=== PATIENT | male | born 1970 | race Caucasian/White ===

== ENCOUNTER 2023-09-27 07:25 | Outpatient (OUT) | payer OTHER, SELFPAY ==
[2023-09-27 08:20] LABS: Basophils Absolute Auto 0.1 10^3/uL (0.0-0.1); Basophils Percent Auto 1.1 % (0.2-2.0); Eosinophils Absolute Auto 0.3 10^3/uL (0.0-0.7); Hematocrit 42.3 % (42.0-54.0); Hemoglobin 14.8 g/dL (14.0-18.0); Immature Granulocytes Abs Auto 0.01 10^3/uL (0.00-0.03); Immature Granulocytes Pct Auto 0.2 % (0.0-0.5); Lymphocytes Absolute Auto 1.7 10^3/uL (1.2-3.8); Lymphocytes Percent Auto 26.9 % (20.5-60.0); Mean Corpuscular Hemoglobin 32.2 pg (25.9-34.0); Mean Corpuscular Volume 92.2 fL (80.0-94.0); Mean Platelet Volume 9.1 fL (9.5-13.5); Monocytes Absolute Auto 0.6 10^3/uL (0.3-0.8); Monocytes Percent Auto 9.7 % (1.7-12.0); Neutrophils Absolute Auto 3.7 10^3/uL (1.4-6.5); Neutrophils Percent Auto 58.1 % (43.0-75.0); Platelet Count 311 10^3/uL (150-450); Red Blood Count 4.59 10^6/uL (4.70-6.10); Red Cell Distribution Width 11.8 % (11.0-15.0); White Blood Count 6.3 10^3/uL (4.0-11.0)
[2023-09-27 08:32] LABS: Alanine Aminotransferase 45 U/L (16-63); Albumin Globulin Ratio 0.8; Albumin Level 3.6 g/dL (3.4-5.0); Alkaline Phosphatase 33 U/L (46-116); Anion Gap 11.6; Aspartate Amino Transferase 24 U/L (15-37); BUN Creatinine Ratio 9.2; Bilirubin Total 0.8 mg/dL (0.2-1.0); Calcium 9.5 mg/dL (8.5-10.1); Carbon Dioxide 27.9 mmol/L (21.0-32.0); Chloride 98 mmol/L (98-107); Chol HDL Ratio 2.7; Cholesterol 168 mg/dL (<=200); Estimated GFR (African America >60 (>=60); Estimated GFR (Non-African Ame >60 (>=60); Globulin 4.3 g/dL; Glucose 115 mg/dL (74-106); HDL Cholesterol 63 mg/dL (40-60); Potassium 3.5 mmol/L (3.5-5.1); Sodium 134 mmol/L (136-145); Total Protein 7.9 g/dL (6.4-8.2); Triglycerides 84 mg/dL (<=150); VLDL CHOLESTEROL 16.8 mg/dL
[2023-09-27 10:13] LABS: Bilirubin Urine NEGATIVE (NEGATIVE); Blood Urine TRACE-I (NEGATIVE); Clarity Urine CLEAR (CLEAR); Color Urine YELLOW (YELLOW); Glucose Urine UA NEGATIVE (NEGATIVE); Ketones Urine NEGATIVE (NEGATIVE); Leukocyte Esterase Urine NEGATIVE (NEGATIVE); Nitrite Urine NEGATIVE (NEGATIVE); Protein Urine NEGATIVE (NEG/TRACE); Specific Gravity Urine 1.015 (1.005-1.025); Urobilinogen Urine 0.2 EU/dL (0.2-1.0); pH Urine 6.5 (5.0-9.0)
[2023-09-27 10:23] LABS: Urine Microscopic Indicated YES
[2023-09-27 10:24] LABS: WBC Urine NONE SEEN #/HPF (NONE SEEN)
[2023-09-27 10:25] LABS: Bacteria Urine NONE SEEN #/HPF (NONE SEEN); Mucus Urine NONE SEEN (NONE SEEN); RBC Urine 0-2 #/HPF (0-2); Squamous Epithelial Cell Urine RARE #/LPF (NONE/RARE)
[2023-09-27 11:22] LABS: Prostate Specific Antigen Scrn 0.76 ng/mL (<=4.00)
== END 2023-09-27 07:26 | disposition home or self-care (01) ==
DX: G47.30 Sleep apnea, unspecified (principal); Z13.0 Encounter for screening for diseases of the blood and blood-forming organs and certain disorders involving the immune mechanism; Z12.5 Encounter for screening for malignant neoplasm of prostate; I10 Essential (primary) hypertension; Z13.1 Encounter for screening for diabetes mellitus; Z13.220 Encounter for screening for lipoid disorders
CPT/HCPCS: 36415; 80053; 80061; 81001; 85025; G0103

== ENCOUNTER 2025-08-29 16:27 | Emergency (ER) | payer OTHER, SELFPAY ==
[2025-08-29] VITALS (34 sets, daily range): BP systolic 130–200; BP diastolic 80–102; PULSE 106–128; TEMP 36.6; O2SAT 96–100; BMI 35.3
--- NOTE | 2025-08-29 16:32 | XR_ITS ---
The [address] [address] Patient Name: SERENITY JUNG MRN: [id number] date: 1970 Sex: M Assigned Patient Location: ED.MAIN Current Patient Location: ED.MAIN Accession/Order Number: [id number] Exam Date: 08/29/2025 16:50 Report Date: 08/29/2025 17:45 At the request of: ROSA SCHAFER MD Procedure: XR chest 1V PA CHEST: CLINICAL HISTORY: cp COMPARISON: None Unremarkable cardiomediastinal. Lungs clear. No effusion or pneumothorax. XR/XR chest 1V IMPRESSION: NEGATIVE ACUTE PLEURAL-PARENCHYMAL DISEASE. Impression dictated by: Ok Castillo M.D. 08/29/2025 5:45 PM Dictation Location: [place] [address] Electronically authenticated by: [id number] Y Date: 08/29/2025 17:45
--- NOTE | 2025-08-29 16:32 | ECG_ITS ---
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 Measurements Intervals [place] Rate: 112 P: 56 NM: 194 QRS: -19 QRSD: 96 T: 67 QT: 308 QTc: 375 Interpretive Statements 1120 Sinus tachycardia 4068 Nonspecific [place] abnormality 8003 Consistent with pulmonary disease 8102 Low QRS voltage in chest leads 9150 abnormal ECG Compared to ECG 08/29/2025 16:35:01 No significant changes Electronically Signed On 08-30-2025 19:58:37 EST by JOSE WHITNEY M.D.
[2025-08-29 16:46] LABS: Hematocrit 40.8 % (42.0-54.0); Hemoglobin 15.3 g/dL (14.0-18.0); Immature Granulocytes Abs Auto 0.03 10^3/uL (0.00-0.03); Immature Granulocytes Pct Auto 0.4 % (0.0-0.5); Lymphocytes Absolute Auto 0.9 10^3/uL (1.2-3.8); Mean Corpuscular HGB Conc 37.5 g/dL (29.9-35.2); Mean Corpuscular Hemoglobin 32.8 pg (25.9-34.0); Mean Corpuscular Volume 87.6 fL (80.0-94.0); Platelet Count 273 10^3/uL (150-450); Red Blood Count 4.66 10^6/uL (4.70-6.10); White Blood Count 8.3 10^3/uL (4.0-11.0)
[2025-08-29] MEDS: LORAZEPAM 1 MG TABLET 2 MG PO ×2 (16:49→20:04)
--- OUTSIDE RECORDS SUMMARY | 2025-08-29 16:57 | XMS_ITS | CCD ---
Author Organization [facility] Care Team Providers Care Chainstitch Elastic Attacher Name Role Phone KEVIN, DR MERLOS Attending Unavailable MISC, DR ISIDRO Primary Care Unavailable KEVIN, DR MERLOS Admitting Unavailable KEVIN, DR MERLOS Consulting Unavailable NATANAELCHING Consulting Unavailable KEVIN, DR MERLOS Admitting Unavailable KEVIN, DR MERLOS Consulting Unavailable KEVIN, DR MERLOS Attending Unavailable BRITTANIE SANCHEZ Attending Unavailable NICOLE MUÑIZ Referring Unavailable NICOLE MUÑIZ Primary Care Unavailable Nicole Muñiz DO Primary Care Provider Deysi EDIPHONE OPERATOR-C, Karla A Primary Care Unavailable Deysi EDIPHONE OPERATOR-C, Karla A Admitting Unavailable Deysi EDIPHONE OPERATOR-C, Karla Paddy Attending Unavailable Deysi EDIPHONE OPERATOR-C, Karla Paddy Attending Unavailable Deysi EDIPHONE OPERATOR-C, Karla A Primary Care Unavailable Deysi EDIPHONE OPERATOR-C, Karla A Primary Care Unavailable Deysi EDIPHONE OPERATOR-C, Karla A Attending Unavailable Allergies Allergy ClassificationReported Allergen(s)Allergy TypeDate of OnsetReaction(s) Facility (1 source)Angiotensin Converting Enzyme (Yevgeniy) Inhibitors; Translations: [YEVGENIY inhibitors]Propensity to adverse reactions to drug (disorder)[facility] Repository (1 source)Penicillin; Translations: [penicillin]Drug [facility]ergy[facility] Medications Current Medications MedicationDrug Class(es)DatesSig (Normalized)Sig (Original)amLODIPine 10 mg oral tablet (6 sources)Dihydropyridine Calcium Channel BlockerStart: 54-86-8417dili 1 tablet by mouth in the morningamLODIPine (NORVASC) 10 mg tablet Take 1 tablet (10 mg total) by mouth in the morning. 1 04/02/2019Activeescitalopram 10 mg oral tablet (6 sources)Serotonin Reuptake InhibitorStart: 55-77-4721alrj 0.5 tablet by mouth in the morningescitalopram (LEXAPRO) 10 mg tablet Take 0.5 tablets (5 mg total) by mouth in the morning. 1 04/13/2019 ActivehydroCHLOROthiazide 25 mg / losartan potassium 100 mg oral tablet (6 sources)Thiazide Diuretic, Angiotensin 2 Receptor BlockerStart: 04-02-2019 take 1 tablet by mouth once in the morninglosartan-hydroCHLOROthiazide (HYZAAR) 100-25 mg per tablet Take 1 tablet by mouth in the morning. Active ibuprofen 800 mg oral tablet (6 sources)Nonsteroidal Anti-inflammatory DrugStart: 64-59-8627esto 1 tablet by mouth every eight hours as needed for painibuprofen (ADVIL,MOTRIN) 800 mg tablet Take 1 tablet (800 mg total) by mouth every 8 (eight) hours as needed for pain. 30 tablet 12/18/2021 Activeloratadine 10 mg oral tablet (6 sources)take 1 tablet by mouth in the morningALLERGY RELIEF, LORATADINE, 10 mg tablet Take 1 tablet (10 mg total) by mouth in the morning. Active Completed/Discontinued Medications MedicationDrug Class(es)DatesSig (Normalized)Sig (Original)naltrexone hydrochloride 50 mg oral tablet (4 sources)Opioid Antagonist End: 99-30-5000slkw 1 tablet by mouth in the morningnaltrexone (REVIA) 50 mg tablet Take 1 tablet (50 mg total) by mouth in the morning. 11/01/2024 Disc ontinued Problems Problem ClassificationProblemDateDocumented DateEpisodic/ChronicAbdominal pain (1 source)Right lower quadrant pain; Translations: [RIGHT LOWER QUADRANT PAIN] Onset: 43-20-1246ShpevpnyAdgbzdpds and vision defects (6 sources)Visual impairment; Translations: [Unspecified visual loss]Onset: 733834-54-2570YqqrxqmNialhvepd hypertension (8 sources)Essential (primary) hypertension; Translations: [Hypertensive disorder]Onset: 420701-55-7467RsqgobqNxec disorders (6 sources)Depressive disorder; Translations: [Depression]Onset: 01-30-2022 56-61-4146EacydhpYyxdr and unspecified benign neoplasm (1 source)Benign neoplasm of transverse colon; Translations: [BENIGN NEOPLASM OF TRANSVERSE COLON]Onset: 40-37-6907PjplqstoOgxtx gastrointestinal disorders (3 sources)Right lower quadrant abdominal swelling, mass and lump; Translations: [RT LOWER QUAD ABD SWELL MASSLUMP]Onset: 34-81-9606MreapmcdTlejr nutritional; endocrine; and metabolic disorders (1 source)Obesity, unspecified; Translations: [OBESITY UNSPECIFIED]Onset: 55-48-6983ZnuzyirYqevf nutritional; endocrine; and metabolic disorders (1 source)Body mass index (BMI) 35.0-35.9, adult; Translations: [BODY MASS INDEX BMI 35.0-35.9 ADULT]Onset: 18-86-5223PjpnewyRcmwlyhq codes; unclassified (1 source)Sleep apnea, unspecified; Translations: [SLEEP APNEA UNSPECIFIED] Onset: 94-03-2188StolptqJoqfuhgz codes; unclassified (1 source)Obstructive sleep apnea (adult) (pediatric); Translations: [Obstructive sleep apnea (adult) (pediatric)]Onset: 53-08-8280MayyuweFskbperx codes; unclassified (7 sources)Sleep apnea; Translations: [Sleep apnea, unspecified]Onset: 091843-88-3914PjoiewwDneialmi codes; unclassified (3 sources)Obstructive sleep apnea syndrome; Translations: [Obstructive sleep apnea (adult) (pediatric)]05-48-4652YarlzaxPspoiwxrb-related disorders (1 source)Nicotine dependence, chewing tobacco, uncomplicated; Translations: [NICOTINE DEPEND CHEW TOBACCO UNCOMP]Onset: 25-70-3567KprsjxqOhjeelcoyzkq (1 source)CONTACT W/AND (SUSP) EXPOS COVID-19; Translations: [CONTACT W/AND (SUSP) EXPOS COVID-19]Onset: 10-24-2021 Results Test NameValueInterpretationReference RangeFacilityCoding Summaryon 04-04-2025 Coding SummaryHTMLBase 64 ZapdmxpdQDp6sMy+PGhlYWQ+XS2LTFJvP17yzKXfnH6xJ1HEXQoQRprbXJVWWWhMKrJpkyQkPJ4lkOBg ZXJu [file] YXB (more content not included)...NormalMet[facility] Center Hospital.Auto Diff 1on 23-78-0428Xtxn Lane %8 %Normal1-12[facility] HospitalComment on above:Performed By: #### 0690781, 01953988, [id number], 8767542, [id number] #### [facility] (DEFAULT) [address] [place] [address] 91806Jaze Abs#0.0 r28Dsllos3.0-0.2[facility] HospitalComment on above:Performed By: #### 0334344, 30907241, 1245111189, 3602906, [id number] #### [facility] (DEFAULT) [address] [place] [address] 38060Curpnzdej/100 WBC (Bld)0.2 %Normal0.2-2.0[facility] Hospital Comment on above:Performed By: #### 4450557, 87008279, [id number], 0629289, [id number] #### [facility] (DEFAULT) [address] [place] [address] 00909Tas Abs#0.2 d13Ozocem1.0-0.4[facility] HospitalComment on above:Performed By: #### 9185208, 76659624, [id number], 9329068, 5098859175 #### [facility] (DEFAULT) [address] [place] [address] 95186Ccdvqijkfgd/100 WBC (Bld)3.7 %Normal0.9-4.0[facility] HospitalComment on above:Performed By: #### 1395221, 36439519, 2621540242, 1812955, 2098446657 #### [facility] (DEFAULT) [address] [place] [address] 59481Hldfc Abs#1.6 a57Dyasgn8.3-2.9[facility] HospitalComment on above:Performed By: #### 0955813, 76897013, 1691265147, 9393653, [id number] #### [facility] (DEFAULT) [address] [place] [address] 71486Uakarzktyxa/100 WBC (Bld)30 %Lgjenv21-37Hwhnaufz Hospital Comment on above:Performed By: #### 0649881, 67072704, 2944391137, 1110617, 9168927594 #### [facility] (DEFAULT) [address] [place] [address] 19798Bjwp Abs#0.5 g02Qnjese8.0-0.8[facility] HospitalComment on above:Performed By: #### 3949297, 62722481, 1479807433, 2241159, 6110337531 #### [facility] (DEFAULT) [address] [place] [address] 90085Jbkw Abs#3.1 s33Soazhc6.5-9.2[facility] HospitalComment on above:Performed By: #### 0790235, 61995345, 6958164317, 8980438, 0066236769 #### [facility] (DEFAULT) [address] [place] [address] 04504Uxhtlqusejy/100 WBC (Bld)58 %Lalqpr81-19Coksvdpt Hospital Comment on above:Performed By: #### 9256706, 83707811, 4338319693, 6200703, 6858331429 #### [facility] (DEFAULT) [address] [place] [address] 01175GLD w/ Auto Diffon 69-17-2083Wrhkypimdjt distribution width (RBC) [Ratio]13.0 %Mltloo70.5-15.0[facility] HospitalComment on above: Performed By: #### 6657140, 05745190, 5436647495, 8109810, 2327389059 #### [facility] (DEFAULT) [address] [place] [address] 15996Kpzvkrppgg (Bld) [Volume fraction]44.3 %Jiszqa72.8-51.9 [facility] HospitalComment on above:Performed By: #### 3184464, 83014993, 1293338335, 6403575, 8151243819 #### [facility] (DEFAULT) [address] [place] [address] 11611Rjxepiihhy (Bld) [Mass/Vol]16.0 g/oUGycibm95.8-17.7 [facility] CenterComment on above:Performed By: #### 1862337, 40430395, 6699135009, 2501149, [id number] #### [facility] (DEFAULT) [address] [place] [address] 46230Rkz Diff?AutoInvalid Interpretation [facility] Comment on above:Performed By: #### 3191595, 41501139, 3677859105, 4215002, 6084498719 #### [facility] (DEFAULT) [address] [place], [place] [address]H (RBC) [Entitic mass]33 wvAmeuvz24-91Szvqgqji Hospital Comment on above:Performed By: #### 2566698, 27848683, 0418929337, 8560264, 4274679145 #### [facility] (DEFAULT) [address] [place] [address] 43840KNSE (RBC) [Mass/Vol]36 g/eLGjduyf64-80Vefarfmy Hospital Comment on above:Performed By: #### 5176020, 59913213, 1433084578, 7485231, 0378704309 #### [facility] (DEFAULT) [address] [place] [address] 35182AOY (RBC) [Entitic vol]90 mLApgllk37-037Lvmfdzda Hospital Comment on above:Performed By: #### 6190713, 03316095, 9217017946, 8209180, 2638303332 #### [facility] (DEFAULT) [address] [place] [address] 66900Bzectovc085 q79Vpvxst404-636Zqgjabyy HospitalComment on above:Performed By: #### 4058592, 50850726, 0593304213, 6134298, 3851572146 #### [facility] (DEFAULT) [address] [place] [address] 57749Wtieljrt mean volume (Bld) [Entitic vol]7.6 fLNormal 6.3-10.2[facility] HospitalComment on above:Performed By: #### 5821006, 65924332, 7419056440, 2516818, 2509149343 #### [facility] (DEFAULT) [address] [place] [address] 47727XBY3.91 z43Vgrasc2.70-5.30[facility] HospitalComment on above:Performed By: #### 4834296, 56256542, 8211081988, 6492556, 8277710073 #### [facility] (DEFAULT) [address] [place] [address] 96007GQN0.4 g19Fssvyz3.5-10.5[facility] HospitalComment on above: Performed By: #### 4455002, 16807156, 6660809216, 7341366, 1150201531 #### [facility] (DEFAULT) [address] [place] [address] 22164QTU Standardon 62-33-8305rUFG Non AA>60Invalid Interpretation CodeMetrohealth Parma Medical CenterComment on above:Performed By: #### 2392566, 22881414, 4945210295, 8735048, 5429423507 #### [facility] (DEFAULT) [address] [place] [address] 99757oCRG AA>60Invalid Interpretation [facility] Comment on above:Performed By: #### 3907037, 69283072, 7054213794, 1177913, 8523159698 #### [facility] (DEFAULT) [address] [place] [address] 40573Zutcqys [Mass/Vol]4.5 g/dLNormal3.5-5.0[facility] Comment on above:Performed By: #### 1137580, 12207241, 6471449629, 7446959, 0317174647 #### [facility] (DEFAULT) [address] [place] [address] 08437Wbghbmz/Globulin [Mass ratio]1.1 {ratio}Low1.4-2.6[facility] HospitalComment on above:Performed By: #### 5156101, 85102823, 8662993919, 0127210, 3299488125 #### [facility] (DEFAULT) [address] [place] [address] 62328Tjd Phos36 IU/PCuemsz85-58Juacxjuo HospitalComment on above:Performed By: #### 5234724, 07290182, 9508138153, 7197249, 2370726713 #### [facility] (DEFAULT) [address] [place] [address] 60292WTY [Catalytic activity/Vol]40.0 U/UWmxxoe09.0-63.0 [facility] HospitalComment on above:Performed By: #### 7329069, 36741393, 3810502493, 8210046, 0628196354 #### [facility] (DEFAULT) [address] [place] [address] 82703Ffmah gap [Moles/Vol]13.4 mmol/LNormal5.0-19.0[facility] HospitalComment on above:Performed By: #### 0248096, 11853079, 5769270867, 5261389, 1982020930 #### [facility] (DEFAULT) [address] [place] [address] 78537EPS [Catalytic activity/Vol]31 U/OOqvndo71-83Azwuwkvk HospitalComment on above:Performed By: #### 8215219, 09730768, 2446065916, 9761507, 3651550957 #### [facility] (DEFAULT) [address] [place] [address] 04292Wxhf Total1.1 mg/dLNormal0.3-1.2[facility] HospitalComment on above:Performed By: #### 1287255, 84913997, 3268275700, 1043174, 8444800684 #### [facility] (DEFAULT) [address] [place] [address] 79587Uhufppl [Mass/Vol]9.3 mg/dLNormal8.9-10.3[facility] Hospital Comment on above:Performed By: #### 0051724, 70465681, 7327593747, 3429420, 9453881531 #### [facility] (DEFAULT) [address] [place] [address] 84954Cjldxfgy [Moles/Vol]98 mmol/FXvm541-120Pkabeckr Hospital Comment on above:Performed By: #### 0962278, 73557341, 8145287684, 8577203, 2260165741 #### [facility] (DEFAULT) [address] [place] [address] 12063KZ2 [Moles/Vol]24 mmol/KBbqhww72-80Ycnijnxu Hospital Comment on above:Performed By: #### 5459853, 89890028, 0154596927, 2927538, 5876985111 #### [facility] (DEFAULT) [address] [place] [address] 63041Kpfzzwljyv [Mass/Vol]0.85 mg/dLLow0.90-1.30[facility] HospitalComment on above:Performed By: #### 8348197, 94588357, 8250053482, 1407186, 4369699666 #### [facility] (DEFAULT) [address] [place] [address] 71824Tixrange (S) [Mass/Vol]4.0 g/dLNormal1.5-4.3[facility] HospitalComment on above:Performed By: #### 5523185, 75201615, 0593039829, 4897258, 3143154563 #### [facility] (DEFAULT) [address] [place] [address] 17530Oryiceu [Mass/Vol]112.0 mg/aCCvopki85.0-118.0[facility] HospitalComment on above:Performed By: #### 9218335, 76025967, 2580665731, 3429795, 2822068667 #### [facility] (DEFAULT) [address] [place] [address] 22471Zfttudrrik357 mOsm/LInvalid Interpretation CodeMetrohealth Parma Medical Center HospitalComment on above:Performed By: #### 1485193, 82570687, 2658038975, 5901989, 3934364458 #### [facility] (DEFAULT) [address] [place] [address] 14832Wvvfigsmk [Moles/Vol]3.4 mmol/LLow3.6-5.1[facility] Comment on above:Performed By: #### 6768100, 97462428, 5929583115, 9982524, 4161312996 #### [facility] (DEFAULT) [address] [place] [address] 74232Hvvpvcc [Mass/Vol]8.5 g/dLHigh6.5-8.1MM[facility] Comment on above:Performed By: #### 4377738, 53195898, 6819462379, 5894251, 4205954113 #### [facility] (DEFAULT) [address] [place] [address] 41620Taxinp [Moles/Vol]132.0 mmol/CYwx442.0-144.0[facility] HospitalComment on above:Performed By: #### 3065928, 91710256, 9572054706, 7960059, 1277797846 #### [facility] (DEFAULT) [address] [place] [address] 89475Nzop nitrogen [Mass/Vol]12 mg/dLNormal8-26[facility] CenterComment on above:Performed By: #### 6651582, 48128075, 5752745553, 5841575, 5100392192 #### [facility] (DEFAULT) [address] [place] [address] 59557Lghk nitrogen/Creatinine [Mass ratio]14.1 mg/mgNormal 4.6-16.2[facility] HospitalComment on above:Performed By: #### 4017826, 68039422, 2034614446, 9843429, 6816334205 #### [facility] (DEFAULT) [address] [place] [address] 84618Tazhk Panel Standardon 23-37-0798Ihfmcunxmqg [Mass/Vol] 199.0 mg/wXEdanrk29.0-200.0[facility] HospitalComment on above:Performed By: #### 0868599, 58910908, 9631046409, 4828931, 7833120795 #### [facility] (DEFAULT) [address] [place] [address] 16013Leyepphfanq in HDL [Mass/Vol]70 mg/fTNiioxk41-88Siwirmek HospitalComment on above:Performed By: #### 2393348, 31331084, 9466485145, 9952344, 6821969222 #### [facility] (DEFAULT) [address] [place] [address] 75195Pucrzhefuab in LDL [Mass/Vol]114 mg/dLHigh1-100[facility] HospitalComment on above:Performed By: #### 9781646, 98519241, 8580321481, 3639124, 1297563907 #### [facility] (DEFAULT) [address] [place] [address] 97105Powaukdmsax.total/Cholesterol in HDL [Mass ratio]2.8 {ratio}Normal0.0-4.5[facility] HospitalComment on above:Performed By: #### 1183881, 11809778, 6640216465, 2518579, 9590746387 #### [facility] (DEFAULT) [address] [place] [address] 37759Dvqoeeoryuxz [Mass/Vol]76.0 mg/dLNormal0.0-150.0[facility] HospitalComment on above:Performed By: #### 1340111, 17031403, 6533559208, 9776723, 4025726279 #### [facility] (DEFAULT) [address] [place] [address] 87056HDBE.15 mg/dLNormal5-40[facility] HospitalComment on above: Performed By: #### 0654803, 99589003, 3074718971, 3964177, 1738900112 #### [facility] (DEFAULT) [address] [place] [address] 76221RXB Screenon 12-84-7196IRN Screen0.81 ng/mLNormal0.00-4.00 [facility] HospitalComment on above:Result Comment: [facility] Synchron Access Clinical System (Chemiluminescence) Values obtained with different assay methods or kits cannot be used interchangeably. Results cannotbe interpreted as absolute evidence of the presence or absence of malignant disease. Performed By: #### 3291064, 77356631, 6719112510, 0477344, 0348962815 #### [facility] (DEFAULT) [address] [place], [place] [address]Jtunf-80 PCR ([facility]VDPAPPAS RE[facility])on 28-42-3158UNHK-CoV-2 (COVID-19) RNA TANESHA+probe Ql (Unsp spec)Not detectedNormalNOT DETECTEDThe [facility] Comment on above:Result Comment: This test is not yet approved or cleared by the [place] FDA. When there are no FDA-approved or cleared tests available, and other criteria are met, FDA can make tests available under an emergency access mechanism called an Emergency Use Authorization (EUA). The EUA for this test is supported by the [place] of Health and Human Service's (HHS's) declaration that circumstances exist to justify the emergency use of in vitro diagnostics for the detection and/or diagnosis of the virus that causes COVID- 19. This EUA will remain in effect (meaning this test can be used) for the duration of the COVID-19 declaration justifying emergency of IVDs, unless it is terminated or revoked by FDA (after which the test may no longer be used). When diagnostic testing is negative, the possibility of a false negative should be considered in the context of a patient's recent exposures and the presence of clinical signs and symptoms consistent with SARS-CoV-2.Performed By: #### CVDTB #### [facility] [address] [address] [address] Yvonne ParkAerobic Cultureon 26-99-6953Vumruwg CultureResult Tab Codes Light Normal Skin Odette 2 Days No Anaerobes Isolated 3 Days Gram Stain Result 1+ White Blood Cells No Bacteria Seen PERFORMED BY: [place] [address] PATHOLOGIST TINSEL MACHINE OPERATOR SOTERO MOMIN M.D.[facility] HospitalComment on above: Performed By: #### GS, AERC #### [facility] [address] [place] [address] USAGram Stainon 31-99-0396Cpkptktnpum observation Gram stain Nom (Unsp spec)Gram Stain Result 1+ White Blood Cells No Bacteria Seen PERFORMED BY: [facility] [address] [id number] PATHOLOGIST TINSEL MACHINE OPERATOR SOTERO MOMIN M.D.[facility] HospitalComment on above: Performed By: #### GS, AERC #### [facility] [address] [place] [address] [facility] Vital Signs Date TimeVital SignValuePerforming DjnjxvyhfYkjntbln64-38-7364 14:44-0500 Diastolic blood envpolxb87 mm[Hg]Brittanie Sanchez MD Work Phone: [phone]02-10-2025 14:44-0500Heart rate 77 /minBrittanie Sanchez MD Work Phone: [phone]02-10-2025 14:44-5258OfZ5% (BldA) [Mass fraction]98 %Brittanie Sanchez MD Work Phone: [phone]02-10-2025 14:44-0500Systolic blood dnudrfgp435 mm[Hg]Brittanie Sanchez MD Work Phone: [phone]01-29-2024 14:26-0500Body .3 cmBrittanie Sanchez MD Work Phone: [phone]01-29-2024 14:26-0500Body mass index (BMI) [Ratio]37.89 kg/t1ZhamiovBrittanie Sanchez MD Work Phone: [phone]01-29-2024 14:26-0500Body .24 kgBrittanie Sanchez MD Work Phone: [phone]01-29-2024 14:26-0500Diastolic blood fueciacp88 mm[Hg]Brittanie Sanchez MD Work Phone: [phone]01-29-2024 14:26-0500Heart rate 67 /minBrittanie Sanchez MD Work Phone: [phone]01-29-2024 14:26-7866RrV0% (BldA) [Mass fraction]96 %Brittanie Sanchez MD Work Phone: [facility]01-29-2024 14:Systolic blood ibwhlmjl131 mm[Hg]Brittanie Sanchez MD Work Phone: [facility] Encounters Encounter DateEncounter TypeCare ProviderFacilityStart: 24-75-3704rkjdjpyylvTlxf A Deysi EDIPHONE OPERATOR-CFacility:[facility]Start: 32-05-7758gcazepczgrAtus A Deysi EDIPHONE OPERATOR-C [facility]: 11-08-2024 End: 34-19-5082Oemspuity encounterDachrissy Clements CMAProMedica Physicians Pulmonary/Sleep MedicineStart: 11-03-2024 End: 07-97-9208Hbpdmnwnh encounterDachrissy Shawladarwiner CMAProMedica Physicians Pulmonary/Sleep MedicineStart: 11-01-2024 End: 55-75-6049Uxhxuf outpatient visit 15 minutesBrittanie Sacnhez MD Work Phone: [facility] Pulmonary/Sleep MedicineComment on above:OSITO (obstructive sleep apnea) (Primary Dx)Start: 11-01-2024 End: 65-26-6134dwghrgaxuuCGGUZZX E WILLIAMSTriHealth [facility] Start: 65-71-1225brvzndggusGqum A Deysi EDIPHONE OPERATOR-CFacility:[facility] CL[facility]ICStart: 56-57-1442Mtybgi OnlyMegan Panoff RNPWillis-Knight[facility] Physicians Pulmonary/Sleep MedicineComment on above:OSITO (obstructive sleep apnea) (Primary Dx)Start: 98-78-4800Iczgaboqk encounterScanning Provider ExternalProMedica Physicians Pulmonary/Sleep MedicineStart: 10-20-2023 End: 23-41-3821Wimbwo outpatient visit 15 minutesBrittanie Sanchez MD Work Phone: [facility] Pulmonary/Sleep MedicineComment on above:OSITO (obstructive sleep apnea) (Primary Dx)Start: 54-93-9602Eutuiztxq for preprocedural laboratory examinationDR [facility] Start: 10-24-2021 End: 73-99-4229qnskvdukvkZN CHELITA BROWNFacility:P2Zgmay: 10-20-2021 End: 81-10-7618mapwvfswfiBN CHELITA DHILLONMELYFacility:W3Tzoeb: 10-20-2021 End: 11-45-0419Uiiipoebw for preprocedural laboratory examinationDR CHELITA DHILLONMorenacility:H1 Procedures DateProcedureProcedure DetailPerforming ClinicianStart: 45-75-8051Pkedrlbsrbh Brittanie Sanchez MD Work Phone: Plan of Treatment DateCare ActivityDetailAuthorStart: 45-46-9078Fgvhdtkjw for malignant neoplasm of colonColonoscopyProTrinity Health [facility] SystemStart: 69-60-2024Civvkse Screening Tobacco ScreeningPremier Health [facility] SystemStart: 10-31-2025 End: 99-31-4717Tjcgvmc encounter giozihzxz21/09/2026 3:30 PM EST Office Visit [facility] [address] [place] [id number] Brittanie Sanchez MD [address] [id number] [facility]/Sleep MedicineStart: 11-01-2024 End: 41-22-0203Cdefahi encounter weqfjuvck22/10/2025 3:30 PM EST Office Visit [facility] [address] [place] [address] Brittanie Sanchez MD [address] [address] [facility] Pulmonary/Sleep MedicineStart: 96-99-3615Ctlei BMI ScreeningAdult BMI Screening [facility] SystemStart: 29-21-7710Meycfaw ScreeningTobacco Screening [facility] SystemStart: 02-40-9060Yygnhibpb vaccinationInfluenza Vaccine [facility] SystemStart: 25-24-5754Cyrkbbdgy vaccinationInfluenza Vaccine [facility]: 70-98-1360Mpwldkrwmqjvuo of varicella zoster vaccineZoster (Shingles) Vaccine (1 of 2)[facility]: 63-64-2226UJiU,Tdap and Td Vaccines (1 - Tdap)DTaP,Tdap and Td Vaccines (1 - Tdap)[facility]: 73-32-7665Rtxld BMI Follow Up PlanAdult BMI Follow Up PlanProSelect Medical [facility] Rehabilitation Hospitaltart: 28-68-6613Cvjuzmgzhp Screening Depression ScreeningDuke Raleigh Hospitaltart: 87-01-3972Anpntow Counseling Tobacco CounselingOhioHealth [facility]ide [facility] Immunizations Immunization DateImmunizationNotesCare MdjdxcqjKhjjvbly78-73-1604weyzszgrc virus vaccine, unspecified formulationBrittanie Sanchez MD Work Phone: [facility] Payers DatePayer CategoryPayerPolicy ID2019MedicareMedicare HMOSUMMACARE MEDICARE [id number] SUMMACA [id number] 2018-Present [phone] [address] [place] [address] [id number] [id number] [id number] Social History DateTypeDetailFacilityStart: 73-75-7408Echjjwr smoking status NHISEx-smoker [facility] HospitalHistory of tobacco useCurrent smokerDuke Raleigh Hospitaltart: 45-77-6136Lmyyjgr use and exposureUser of smokeless tobacco [facility] HospitalHistory of tobacco useChews TobaccoPrem[facility] SystemStart: 10-20-2023 End: 78-46-3325Nlcfxfvmu beverage intakeEx-drinker (finding)[facility] SystemStart: 10-02-2020 End: 60-91-5138Xllxjvc of Social functionPremier Health [facility] SystemStart: 10-02-2020 End: 32-46-7357Qhoiwat Use Disorder Identification Test - Consumption [AUDIT-C] [facility] HospitalFrequency of Alcohol Consumption4 or more times a week [facility]tart: 78-80-7103Jnlsmrp Weitpfj47 a weekDuke Raleigh Hospitaltart: 96-13-9520Ktj assigned at birthNot on [facility] Start: 82-45-7777PtbLutr (finding)[facility] Medical Equipment Procedure CodeEquipment CodeEquipment Original TextEquipment IdentifierDatesMesh [id number] Pp Pcl Macroporous Parietene Ds 2.4mm Comp Abs [facility] [id number] - [id number] - [id number]: 12-18-2021 Clinical Notes 10-20-2023 to 03-30-2025 Note Date & LokfPfnwUtggexdq78-49-1237 Note From: Radha Crisostomo LPN ([facility] ([facility])) To: Karla Plunkett; Sent: 03/30/2025 11:13:25 EDT Subject: FW: Medication Management Due Date/Time: 03/31/2025 10:55:00 EDT Caller Name: SABINO JUNG; Caller Number: Jaime , M From: [id number] To: 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 Sent: March 30, 2025 9:55:58 AM CDT Subject: Medication Management Due: March 31, 2025 9:55:58 AM CDT Originally Prescribed Drug: Drug: tirzepatide (Zepbound 2.5 mg/0.5 mL subcutaneous solution), 2.5 mg Subcutaneous weekly x 1 month; rotate injection sites Quantity: 4 pens Days Supply: 0 Refills: 0 Substitutions Allowed Notes from Pharmacy: On Hold Pending Signature Preferred Alternative Drug: tirzepatide (Zepbound Pen 2.5 mg/0.5 mL subcutaneous solution), NJ 2.5 MG SUBCUTANEOUSLY (UNDER THE SKIN) ONCE A WEEK Quantity: 2 mL Days Supply: 0 Refills: 0 Substitutions Allowed Notes from Pharmacy: From: Karla Plunkett To: [id number] Sent: 03/30/2025 11:55:39 EDT Subject: FW: Medication Management Approved Order:tirzepatide (Zepbound Pen 2.5 mg/0.5 mL subcutaneous solution) NJ 2.5 MG SUBCUTANEOUSLY (UNDER THE SKIN) ONCE A WEEK Qty: 2 mL Days Supply: 0 Refills: 0 Substitutions Allowed Route To Pharmacy - [id number] Signed by Karla Plunkett Cancelled: Discontinue:tirzepatide (Zepbound 2.5 mg/0.5 mL subcutaneous solution) Signed by Deysi LYMAN, [facility]02-17-2025 Miscellaneous Notes* Telephone Encounter - Trinidad Clements CMA - 11/08/2024 8:37 AM EST PAP mask and supplies order with supportive documentation faxed to [facility]. documented in this encounterOhioHealth Riverside Methodist Hospital02-17-2025 Telephone encounter Note* Telephone Encounter - Trinidad Clements CMA - 11/08/2024 8:37 AM EST PAP mask and supplies order with supportive documentation faxed to [facility]. [facility]02-12-2025 Miscellaneous Notes* Telephone Encounter - Trinidad Clements CMA - 11/03/2024 9:02 AM EST PAP mask and supplies order with supportive documentation faxed to [facility]. documented in this encounterOhioHealth Riverside Methodist Hospital02-12-2025 Telephone encounter Note* Telephone Encounter - Trinidad Clements CMA - 11/03/2024 9:02 AM EST PAP mask and supplies order with supportive documentation faxed to [facility]. [facility]02-10-2025 History of Present illness Narrative* Brittanie Sanchez MD - 11/01/2024 3:30 PM EST Images from the original note were not included. [address] [place] [address] Patient: Sabino Jung Date of : 1970 Encounter Date: 11/01/2024 History of Present Illness: The patient is a 54 y.o. male, is here for follow up of OSITO. He is here today for his yearly follow-up of obstructive sleep apnea. He has been doing well with his PAP therapy. Denies any significant issues with his mask. He was very happy with the transition to the vargas hybrid in the leak has significantly improved. Mask interface: Vargas hybrid [] Epistaxis [] Aerophagia [] Pressure intolerance [] Skin irritation [] Mask leak BT - 9:30-10pm (in bed, quiet and dark, in bed, no pets) SATISH - 15 minutes WASO - rare WT - 4:30-5am Naps - none Cleaning machine / cleaning supplies = vinegar Nocturnal behaviors / RLS = none Drowsy driving = denies Physical Exam: BP 144/88 Pulse 77 SpO2 98% General Appearance - Awake, alert, oriented, in no acute distress 04/16/2019 10:35 AM 05/03/2019 10:41 PM 10/20/2023 2:00 PM Ripley Sleepiness Scale Sitting and Reading 3 3 0 Watching TV 3 3 1 Sitting inactive in a public place (theater, meeting) 0 0 0 As a passenger in a car for an hour without a break 0 0 0 Lying down in the afternoon to rest 0 0 1 Sitting and talking to someone 0 0 0 Sitting quietly after lunch (without alcohol) 0 0 0 In a car, while stopped for a few minutes in traffic 0 0 0 Total 6 6 2 Assessment: 1. Obstructive sleep apnea (CANDACE 53.9, 3% desaturation criteria, minimum saturation 74%, average saturation 90%, March 2019) currently on CPAP 13 cm of water with excellent benefit and compliance 2. History of parasomnias, resolved with PAP therapy 3. Essential hypertension 4. Depression 5. Obesity, BMI 37 6. Prior nicotine dependence, 20 pyh history quit 2002 Plan: 1. PAP supplies renewed 2. Download reviewed 3. No change in pressures 4. Follow up in 1 year Brittanie Sanchez MD [facility] Past Medical, Family, and Social History Update: The following portions of the patient's history were reviewed and updated as appropriate: allergies, current medications, past family history, past medical history, past social history, past surgicalhistory and problem list. Past Medical History: Diagnosis Date Depression Hypertension Sleep apnea cpap Visual impairment Past Surgical History: Procedure Laterality Date APPENDECTOMY DAVINCI REPAIR HERNIA INCISIONAL N/A 12/18/2021 Performed by Chelita Brown DO at [facility] Family History Problem Relation Age of Onset Diabetes Mother Hypertension Mother Kidney disease Mother Lung cancer Father Heart attack Father Diabetes Sister Hypertension Sister Colon cancer Maternal Grandmother Current Outpatient Medications Medication Sig Dispense Refill ALLERGY RELIEF, LORATADINE, 10 mg tablet Take 1 tablet (10 mg total) by mouth in the morning. amLODIPine (NORVASC) 10 mg tablet Take 1 tablet (10 mg total) by mouth in the morning. 1 escitalopram (LEXAPRO) 10 mg tablet Take 0.5 tablets (5 mg total) by mouth in the morning. 1 ibuprofen (ADVIL,MOTRIN) 800 mg tablet Take 1 tablet (800 mg total) by mouth every 8 (eight) hours as needed for pain. 30 tablet 0 losartan-hydroCHLOROthiazide (HYZAAR) 100-25 mg per tablet Take 1 tablet by mouth in the morning. 1 naltrexone (REVIA) 50 mg tablet Take 1 tablet (50 mg total) by mouth in the morning. No current facility-administered medications for this visit. (All medications reviewed and updated by provider since last office visit or hospitalization) Allergies: Patient has no known allergies. Tobacco History: Social History Tobacco Use Smoking Status Former Smokeless Tobacco Current Types: Chew (If patient a smoker, smoking cessation counseling offered) Social History: Social History Substance and Sexual Activity Alcohol Use Not Currently Comment: 24 a week documented in this encounterOhioHealth Riverside Methodist Hospital02-10-2025 Instructions* Patient Instructions* Brittanie Sanchez MD - 11/01/2024 2:45 PM EST 1. PAP supplies renewed 2. Download reviewed 3. No change in pressures 4. Follow up in 1 year documented in this encounterOhioHealth Riverside Methodist Hospital02-16-2024 History of Present illness Narrative* Sandra Qiu RN - 11/07/2023 9:59 AM EST Pt called, states Vargas Hybrid mask has been working well for him. Updated PAP supply order faxed to [facility] along with office note. documented in this encounterOhioHealth Riverside Methodist Hospital01-30-2024 Miscellaneous Notes* Telephone Encounter - Alon Lucero - 10/21/2023 3:41 PM EST Supplies sent to [facility] documented in this encounterOhioHealth Riverside Methodist Hospital01-30-2024 Telephone encounter Note* Telephone Encounter - [facility] Lucero - 10/21/2023 3:41 PM EST Supplies sent to [facility]01-29-2024 History of Present illness Narrative* Brittanie Sanchez MD - 10/20/2023 2:00 PM EST Images from the original note were not included. [address] [place] [address] Patient: Sabino Jung Date of : 1970 Encounter Date: 10/20/2023 History of Present Illness: The patient is a 53 y.o. male, is here for follow up of obstructive sleep apnea. He was last seen in 2021. His mask has been leaking substantially and it is bothering his and bed partner. Mask interface: FFM [] Epistaxis [] Aerophagia [] Pressure intolerance [] Skin irritation [] Mask leak BT - in chair around 9:30pm, sleeps in chair until 11p-1am SATISH - 15 minutes WASO - rare WT - 4:30am (6-8am) Naps - none other than chair at night Cleaning machine / cleaning supplies = replaces mask Nocturnal behaviors / RLS = none Drowsy driving = denies Physical Exam: BP 112/67 Pulse 67 Ht 180.3 cm (5' 11 ) Wt 123.2 kg (271 lb 11.2 oz) SpO2 96% BMI 37.89 kg/m General Appearance - Awake, alert, oriented, in no acute distress 04/16/2019 10:35 AM 05/03/2019 10:41 PM 10/20/2023 2:00 PM Ripley Sleepiness Scale Sitting and Reading 3 3 0 Watching TV 3 3 1 Sitting inactive in a public place (theater, meeting) 0 0 0 As a passenger in a car for an hour without a break 0 0 0 Lying down in the afternoon to rest 0 0 1 Sitting and talking to someone 0 0 0 Sitting quietly after lunch (without alcohol) 0 0 0 In a car, while stopped for a few minutes in traffic 0 0 0 Total 6 6 2 Assessment: 1. Obstructive sleep apnea (CANDACE 53.9, 3% desaturation criteria, minimum saturation 74%, average saturation 90%, March 2019) currently on CPAP 13 cm of water with excellent benefit and compliance 2. History of parasomnias, resolved with PAP therapy 3. Essential hypertension 4. Depression 5. Obesity, BMI 37 6. Prior nicotine dependence, 20 pyh history quit 2002 Plan: 1. Sample mask (Vargas hybrid fit pack and F20 fit large) 2. Discussed inspire. Not currently a candidate given his use of PAP therapy and borderline hypoxemia during his initial testing 3. PAP Supplies renewed 4. Follow up in 1 year Brittanie Sanchez MD Pulmonary and Sleep Medicine [facility] Past Medical, Family, and Social History Update: The following portions of the patient's history were reviewed and updated as appropriate: allergies, current medications, past family history, past medical history, past social history, past surgicalhistory and problem list. Past Medical History: Diagnosis Date Depression Hypertension Sleep apnea cpap Visual impairment Past Surgical History: Procedure Laterality Date APPENDECTOMY DAVINCI REPAIR HERNIA INCISIONAL N/A 12/18/2021 Performed by Chelita Brown DO at [facility] Family History Problem Relation Age of Onset Diabetes Mother Hypertension Mother Kidney disease Mother Lung cancer Father Heart attack Father Diabetes Sister Hypertension Sister Colon cancer Maternal Grandmother Current Outpatient Medications Medication Sig Dispense Refill ALLERGY RELIEF, LORATADINE, 10 mg tablet Take 1 tablet (10 mg total) by mouth in the morning. amLODIPine (NORVASC) 10 mg tablet Take 1 tablet (10 mg total) by mouth in the morning. 1 escitalopram (LEXAPRO) 10 mg tablet Take 0.5 tablets (5 mg total) by mouth in the morning. 1 ibuprofen (ADVIL,MOTRIN) 800 mg tablet Take 1 tablet (800 mg total) by mouth every 8 (eight) hours as needed for pain. 30 tablet 0 losartan-hydroCHLOROthiazide (HYZAAR) 100-25 mg per tablet Take 1 tablet by mouth in the morning. 1 naltrexone (REVIA) 50 mg tablet Take 1 tablet (50 mg total) by mouth in the morning. No current facility-administered medications for this visit. (All medications reviewed and updated by provider since last office visit or hospitalization) Allergies: Patient has no known allergies. Tobacco History: Social History Tobacco Use Smoking Status Former Smokeless Tobacco Current Types: Chew (If patient a smoker, smoking cessation counseling offered) Social History: Social History Substance and Sexual Activity Alcohol Use Not Currently Comment: 24 a week documented in this encounterOhioHealth Riverside [facility] Hospital01-29-2024 Instructions* Patient Instructions* Brittanie Sanchez MD - 10/20/2023 2:00 PM EST 1. Sample mask 2. Discussed inspire 3. PAP Supplies renewed 4. Follow up in 1 year documented in this encounterOhioHealth Riverside Methodist HospitalEvaluation note* Diagnosis OSITO (obstructive sleep apnea)- Primary Obstructive sleep apnea (adult) (pediatric) documented in this encounter [facility] HospitalEvaluation [facility]* Diagnosis OSITO (obstructive sleep apnea)- Primary Obstructive sleep apnea (adult) (pediatric) documented in this encounter [facility]* Diagnosis OSITO (obstructive sleep apnea)- Primary Obstructive sleep apnea (adult) (pediatric) documented in this encounter [facility] SystemInstructionsNot on filedocumented in this encounter [facility] SystemInstructionsNot on filedocumented in this encounter [facility] SystemInstructionsNot on filedocumented in this encounter [facility] Summary Purpose Family History No Family History Records FoundNo Family History Records FoundNo Family History Records FoundNo Family History Records Found Advance Directives No Advanced Directives Records FoundNo Advanced Directives Records FoundNo Advanced Directives Records FoundNo Advanced Directives Records Found Additional Source Comments (unrecognized sect ion and content) No Status Records FoundNo Status Records FoundNo Status Records FoundNo Status Records Found INFORMATION SOURCE (unrecogn ized section and content) DATE CREATED AUTHOR 09/06/2019 [facility] DATE CREATED AUTHOR AUTHOR'S ORGANIZ ATION 11/01/2021 [facility] DATE CREATED AUTHOR AUTHOR'S ORGANIZ ATION 11/03/2024 [facility] DATE CREATED AUTHOR AUTHOR'S ORGANIZ ATION 04/07/2025 [facility] Care Teams (unrecognized sec tion and content) Team MemberRelationshipSpecialtyStart DateEnd Date AntoninoNicole olivas Brent, DO [address] [place] [facility] [address] PCP - GeneralFamily Medicine10/15/21Team MemberRelationshipSpecialtyStart DateEnd Date Nicole Muñiz Brent, DO [address] [place] [facility] [address] PCP - GeneralFamily Medicine10/15/21Team MemberRelationshipSpecialtyStart DateEnd Date AntoninoNicole olivas Brent, DO [address] [place] [facility] [address] PCP - GeneralFamily Medicine10/15/21Team MemberRelationshipSpecialtyStart DateEnd Date AntoninoNicole olivas Brent, DO [address] [place] [place] [address] PCP - GeneralFamily Medicine10/15/21Team MemberRelationshipSpecialtyStart DateEnd Date Nicole Muñiz Brent, DO [address] [facility] [place] [address] PCP - GeneralFamily Medicine10/15/21 Reason for Visit (unrecogniz ed section and content) ReasonCommentsSleep ApneaDME: HARTReasonCommentsSleep ApneaDME: Garcia FOR RECORDS PERTAINING TO PATIENTS WHO ARE OR HAVE BEEN ENROLLED IN A CHEMICAL DEPENDENCY/SUBSTANCEABUSE PROGRAM, SOME INFORMATION MAY BE OMITTED. This clinical summary was aggregated from multiple sources. Caution should be exercised in using it in the provision of clinical care. This summary normalizes information from multiple sources, and as a consequence, information in this document may materially change the coding, format and clinical context of patient data. In addition, data may be omitted in some cases. CLINICAL DECISIONS SHOULD BE BASED ON THE PRIMARY CLINICAL RECORDS. [facility] [employer] [facility]. provides no warranty or guarantee of the accuracy or completeness of information in this document.
[2025-08-29 17:02] LABS: INR 0.98; Prothrombin Time 10.3 sec (9.0-11.6)
[2025-08-29 17:11] LABS: Alanine Aminotransferase 81 U/L (16-63); Albumin Globulin Ratio 0.9; Albumin Level 4.1 g/dL (3.4-5.0); Alkaline Phosphatase 52 U/L (46-116); Anion Gap 19.6; Aspartate Amino Transferase 53 U/L (15-37); Blood Urea Nitrogen 4.0 mg/dL (7.0-18.0); Calcium 9.6 mg/dL (8.5-10.1); Carbon Dioxide 23.7 mmol/L (21.0-32.0); Estimated GFR (African America >60 (>=60 mL/min/1.73m^2); Estimated GFR (Non-African Ame >60 (>=60 mL/min/1.73m^2); Globulin 4.4 g/dL; Glucose 150 mg/dL (74-106); Potassium 3.3 mmol/L (3.5-5.1); Total Protein 8.5 g/dL (6.4-8.2)
[2025-08-29 17:15] LABS: Chloride 84 mmol/L (98-107); Sodium 124 mmol/L (136-145)
[2025-08-29] MEDS: NITROGLYCERIN 0.4 MG BOTTLE SL (17:26)
--- NOTE | 2025-08-29 17:28 | ECG_ITS ---
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 Measurements Intervals [employer] Rate: 106 P: 49 IL: 196 QRS: -14 QRSD: 88 T: 64 QT: 330 QTc: 392 Interpretive Statements 1120 Sinus tachycardia 8102 Low QRS voltage in chest leads 9140 abnormal rhythm ECG Compared to ECG 08/29/2025 16:36:29 No significant changes Electronically Signed On 08-30-2025 19:58:50 EST by JOSE WHITNEY M.D.
[2025-08-29] MEDS: FAMOTIDINE/PF 20 MG/2 ML VIAL IV (17:45)
[2025-08-29] MEDS: 0.9 % SODIUM CHLORIDE 1,000 ML 250 ML IV (18:03)
--- NOTE | 2025-08-29 18:03 | ED.ARRPALP1 ---
HPI - Arrhythmia/Palpitations General Chief Complaint: Arrhythmia/Palpitations Stated Complaint: POSS HEART ATTACK Time Seen by Provider: 08/29/25 16:32 Source: patient Mode of arrival: walk-in Limitations: no limitations History of Present Illness HPI narrative: The patient is 54 years old male who have a history of morbid obesity in addition to hypertension and family history of coronary artery disease with his father dying before the age of 55, the patient is presenting to us with chest pain that been progressively getting more repeated it mostly retrosternal associated with sense of heartburn and shakiness, the patient also sweats with that pain and it goes away after few seconds, patient presenting to us today after he had the last episode similar to this almost 3 days ago, the patient mostly have those episodes at rest, he is presenting to us with a elevated blood pressure The patient upon arrival is sweating and looks anxious, the patient also mentioned that he uses a nicotine patches daily Related Data Home Medications ?Medication ?Instructions ?Recorded ?Confirmed amlodipine 10 mg tablet 10 mg PO DAILY 08/29/25 08/29/25 losartan 100 1 tab PO DAILY 08/29/25 08/29/25 mg-hydrochlorothiazide 25 mg tablet Allergies Allergy/AdvReac Type Severity Reaction Status Date / Time No Known Drug Allergies Allergy Verified 08/29/25 16:29 Review of Systems ROS Status of ROS 10 or more systems reviewed and unremarkable except as noted in history and below PFSH PFSH Social History Little interest or pleasure in doing things: not at all Feeling down, depressed, or hopeless: not at all Exam Narrative Exam Narrative: Nurses notes and vital signs reviewed and patient is not hypoxic. General: Well-appearing and in no apparent distress. Skin: Warm, dry, no pallor noted. No rash. Head: Normocephalic, atraumatic. Neck: Supple, non-tender. Eye: Pupils are equal, round and EOMI. No scleral icterus. Cardiovascular: Regular Rate and Rhythm without murmur, gallop or rub. Respiratory: No accessory muscle use or respiratory distress. Lungs are clear to auscultation, no wheezing, rales or rhonchi Chest Wall: no tenderness Back: No midline thoracic or lumbar vertebral tenderness. No CVA tenderness Musculoskeletal: normal ROM, no calf or popliteal tenderness, 1+ pitting edema GI: Abdomen is soft, non-distended. Normal bowel sounds. No masses appreciated. No tenderness to palpation. No rebound, guarding, or rigidity noted. Neurological: A&O x4. No cranial nerve dysfunction observed. No truncal ataxia. Moves all extremities. Sensation intact. Psychiatric: Cooperative and interactive. Normal mood and affect. Constitutional Vital Signs, click to edit/add: Last Vital Signs Temp 97.8 F 08/29/25 16:30 Pulse 115 H 08/29/25 16:30 Resp 21 H 08/29/25 16:30 BP 133/80 08/29/25 17:39 Pulse Ox 100 08/29/25 16:30 Course Vital Signs Vital signs: Vital Signs Temperature 97.8 F 08/29/25 16:30 Pulse Rate 115 H 08/29/25 16:30 Respiratory Rate 21 H 08/29/25 16:30 Blood Pressure 189/102 H 08/29/25 16:30 Pulse Oximetry 100 08/29/25 16:30 Temperature 97.8 F 08/29/25 16:30 Pulse Rate 115 H 08/29/25 16:30 Respiratory Rate 21 H 08/29/25 16:30 Blood Pressure 133/80 08/29/25 17:39 Pulse Oximetry 100 08/29/25 16:30 MDM - Arrhythmia/Palpitations MDM Narrative Medical decision making narrative: The patient EKG in the ER showing sinus rhythm with a heart rate of [address] elevation but there is nonspecific T wave abnormalities with T wave inversion in lead aVL Patient had his EKG repeated after almost an hour when he was complaining of heartburn The patient CBC and chemistry showed that the patient have hyponatremia which could be secondary to his alcohol drinking habit The troponin was negative on the first test and it will be repeated Heart rate responded initially with some hydration but the patient still tachycardic after discussing the case with Dr. Cabrrea and the right now he was okay with the plan of the patient to be seen as outpatient as long as blood pressure will be controlled and he will be started on low-dose beta-julian in case of his heart rate is still elevated but otherwise the patient will also be admitted for observation in case the patient still have symptoms Awaiting the results of the second troponin the patient care transferred to Dr. Vu Lab Data Labs: Lab Results 08/29/25 Range/Units 16:39 WBC 8.3 (4.0-11.0) 10^3/uL RBC 4.66 L (4.70-6.10) 10^6/uL Hgb 15.3 (14.0-18.0) g/dL Hct 40.8 L (42.0-54.0) % MCV 87.6 (80.0-94.0) fL MCH 32.8 (25.9-34.0) pg MCHC 37.5 H (29.9-35.2) g/dL RDW 11.8 (11.0-15.0) % Plt Count 273 (150-450) 10^3/uL MPV 8.0 L (9.5-13.5) fL Neut % (Auto) 83.0 H (43.0-75.0) % Lymph % (Auto) 10.8 L (20.5-60.0) % [place] % (Auto) 5.2 (1.7-12.0) % Eos % (Auto) 0.0 L (0.9-7.0) % Baso % (Auto) 0.6 (0.2-2.0) % Neut # (Auto) 6.9 H (1.4-6.5) 10^3/uL Lymph # (Auto) 0.9 L (1.2-3.8) 10^3/uL [place] # (Auto) 0.4 (0.3-0.8) 10^3/uL Eos # (Auto) 0.0 (0.0-0.7) 10^3/uL Baso # (Auto) 0.1 (0.0-0.1) 10^3/uL Abs Immat Gran (auto) 0.03 (0.00-0.03) 10^3/uL Imm/Tot Granulo (auto) 0.4 (0.0-0.5) % PT 10.3 (9.0-11.6) sec INR 0.98 D-Dimer 0.32 (<=0.59) mg/L FEU Sodium 124 L* (136-145) mmol/L Potassium 3.3 L (3.5-5.1) mmol/L Chloride 84 L* (98-107) mmol/L Carbon Dioxide 23.7 (21.0-32.0) mmol/L Anion Gap 19.6 BUN 4.0 L (7.0-18.0) mg/dL Creatinine 1.04 (0.70-1.30) mg/dL Est GFR ( Amer) >60 (>=60 mL/min/1.73m^2) Est GFR (Non-Af Amer) >60 (>=60 mL/min/1.73m^2) BUN/Creatinine Ratio 3.8 Glucose 150 H (74-106) mg/dL Calcium 9.6 (8.5-10.1) mg/dL Total Bilirubin 0.7 (0.2-1.0) mg/dL AST 53 H (15-37) U/L ALT 81 H (16-63) U/L Alkaline Phosphatase 52 (46-116) U/L Troponin I High Sens 13.2 (4.0-76.1) pg/mL Total Protein 8.5 H (6.4-8.2) g/dL Albumin 4.1 (3.4-5.0) g/dL Globulin 4.4 g/dL Albumin/Globulin Ratio 0.9 Discharge Plan Discharge Patient Disposition: Still a Patient
== END 2025-08-29 20:18 | disposition home or self-care (01) ==
PROVIDERS: Emergency Provider Emergency Medicine
DX: R07.89 Other chest pain (principal); F10.139 Alcohol abuse with withdrawal, unspecified; F41.9 Anxiety disorder, unspecified; I10 Essential (primary) hypertension
CPT/HCPCS: 36415; 71045; 80053; 84484; 85025; 85378; 85610; 93005; 96374; 99285; J3490